=== PATIENT | female | born 1930 | race Caucasian/White ===

== ENCOUNTER 2019-01-28 14:47 | Emergency (ER) | payer MEDICARE, BC ==
[~2019-01-28] VITALS: Ht 172.7 cm; Wt 45.0 kg
[2019-01-28 14:55] VITALS: BP 182/50
[2019-01-28 15:23] LABS: BASOPHILS # (AUTO) 0.1 X10'3 (0-0.2); BASOPHILS % (AUTO) 0.7 % (0-1); PLATELET COUNT 169 X10'3 (140-440)
[2019-01-28 15:25] LABS: EOSINOPHILS # (AUTO) 0.2 X10'3 (0-0.9); EOSINOPHILS % (AUTO) 2.8 % (0-6); HEMATOCRIT 40.1 % (35.0-45.0); HEMOGLOBIN 13.5 g/dl (12.0-16.0); LYMPHOCYTES % (AUTO) 22.7 % (21-51); MEAN CORPUSCULAR HEMOGLOBIN 31.8 PG (27.0-31.0); MEAN CORPUSCULAR HGB CONC 33.6 g/dL (33.0-36.5); MEAN CORPUSCULAR VOLUME 94.6 FL (78-98); MONOCYTES # (AUTO) 0.7 X10'3 (0-0.9); MONOCYTES % (AUTO) 7.4 % (2-12); NEUTROPHILS # (AUTO) 5.8 X10'3 (1.8-7.7); NEUTROPHILS % (AUTO) 66.4 % (42-75); RED BLOOD COUNT 4.24 X10'6 (4.20-5.60); RED CELL DISTRIBUTION WIDTH 13.2 % (11.5-14.5); WHITE BLOOD COUNT 8.8 X10'3 (4.5-11.0)
[2019-01-28 15:32] LABS: ALANINE AMINOTRANSFERASE 45 U/L (12-78); ALBUMIN 3.4 G/DL (3.4-5.0); ALBUMIN/GLOBULIN RATIO 0.9 (1.1-1.5); ALKALINE PHOSPHATASE 92 IU/L (46-116); ANION GAP 3 (8-16); ASPARTATE AMINO TRANSFERASE 25 U/L (10-37); BILIRUBIN,TOTAL 0.7 MG/DL (0.1-1.0); BLOOD UREA NITROGEN 18 MG/DL (7-18); CALCIUM 9.9 MG/DL (8.5-10.1); CHLORIDE 103 MMOL/L (99-107); GLUCOSE 103 MG/DL (70-104); POTASSIUM 3.7 MMOL/L (3.5-5.1); SODIUM 141 MMOL/L (135-145); TOTAL CARBON DIOXIDE 34.8 MMOL/L (24-32); eGFR > 90 ML/MIN
--- NOTE | 2019-01-28 16:00 | NUR ---
relieving RN for break, pt is resting quietly on gurney, GCS 15, resp even and unlabored, talking full sentences, waiting to be evaluated by provider, report to Elpidio CONCEPCION
[2019-01-28 16:33] LABS: LARGE PLATELETS FEW; PLATELET ESTIMATE NORMAL
[2019-01-28] MEDS ORDERED: LEVO500T2 PO (17:20)
[2019-01-28] MEDS ORDERED: levoFLOXACIN 750MG TABLET PO ONE (17:35)
== END 2019-01-28 18:28 | disposition home or self-care (01) ==
LOC: ER 14:47
DX: J22 Unspecified acute lower respiratory infection (principal); R10.84 Generalized abdominal pain; I25.10 Atherosclerotic heart disease of native coronary artery without angina pectoris; I10 Essential (primary) hypertension; K21.9 Gastro-esophageal reflux disease without esophagitis; G89.29 Other chronic pain; Z90.49 Acquired absence of other specified parts of digestive tract; Z88.5 Allergy status to narcotic agent; Z88.8 Allergy status to other drugs, medicaments and biological substances; Z79.899 Other long term (current) drug therapy
CPT/HCPCS: 36415; 71046; 71250; 80053; 83605; 84145; 85025; 87040; 93005; 99284

== ENCOUNTER 2019-06-10 10:34 | Inpatient (IN) | payer MEDICARE, BC ==
[~2019-06-10] VITALS: Ht 154.9 cm; Wt 38.0 kg
[~2019-06-10 10:34] MED LIST: ALBU2.5V10 NEB; ASPI81TA52 PO; ATOR40TA71 PO; CHOL10002 PO; CLOP75TA35 PO; LEVO50TA8 PO; MIRA50TA PO
[2019-06-10 11:36] LABS: BASOPHILS % (AUTO) 0.3 % (0-1); EOSINOPHILS # (AUTO) 0.3 X10'3 (0-0.9); EOSINOPHILS % (AUTO) 1.9 % (0-6); HEMATOCRIT 41.2 % (35.0-45.0); HEMOGLOBIN 13.2 g/dl (12.0-16.0); LYMPHOCYTES % (AUTO) 22.2 % (21-51); MEAN CORPUSCULAR HEMOGLOBIN 30.2 PG (27.0-31.0); MEAN CORPUSCULAR VOLUME 94.4 FL (78-98); MEAN PLATELET VOLUME 10.5 FL (7.4-10.4); MONOCYTES # (AUTO) 0.5 X10'3 (0-0.9); MONOCYTES % (AUTO) 3.9 % (2-12); NEUTROPHILS # (AUTO) 9.7 X10'3 (1.8-7.7); NEUTROPHILS % (AUTO) 71.7 % (42-75); PLATELET COUNT 210 X10'3 (140-440); RED BLOOD COUNT 4.37 X10'6 (4.20-5.60); RED CELL DISTRIBUTION WIDTH 14.2 % (11.5-14.5); WHITE BLOOD COUNT 13.5 X10'3 (4.5-11.0)
[2019-06-10 11:52] LABS: PARTIAL THROMBOPLASTIN TIME 24 SECONDS (22-32)
[2019-06-10 12:00] LABS: ALANINE AMINOTRANSFERASE 51 U/L (12-78); ALBUMIN 3.6 G/DL (3.4-5.0); ALBUMIN/GLOBULIN RATIO 0.9 (1.1-1.5); ALKALINE PHOSPHATASE 81 IU/L (46-116); ANION GAP 7 (8-16); ASPARTATE AMINO TRANSFERASE 47 U/L (10-37); BILIRUBIN,TOTAL 0.7 MG/DL (0.1-1.0); BLOOD UREA NITROGEN 11 MG/DL (7-18); BUN/CREATININE RATIO 19.6 (6.6-38.0); CALCIUM 8.7 MG/DL (8.5-10.1); CHLORIDE 102 MMOL/L (99-107); CREATININE 0.56 MG/DL (0.40-0.90); GLUCOSE 159 MG/DL (70-104); POTASSIUM 3.5 MMOL/L (3.5-5.1); SODIUM 144 MMOL/L (135-145); TOTAL CARBON DIOXIDE 35.1 MMOL/L (24-32); TOTAL PROTEIN 7.4 G/DL (6.4-8.2); eGFR > 90 ML/MIN
[2019-06-10] MEDS ORDERED: hyDRALAzine 10mg tablet PO ONE (12:05)
[2019-06-10] MEDS ORDERED: nitroGLYCERIN 0.4mg SUBLingual tab SL ONE (12:15)
[2019-06-10] MEDS ORDERED: acetaminophen 325mg tablet PO ONE (12:55)
[2019-06-10] MEDS ORDERED: magnesium 2GM in 50ml NS 50 ML IV PRN (14:50)
[2019-06-10] MEDS ORDERED: potassium Cl 20 mEq SR tablet PO PRN (14:50)
[2019-06-10] MEDS ORDERED: acetaminophen 325mg tablet PO PRN (14:50)
[2019-06-10] MEDS ORDERED: magnesium Cl slow-release 64mg tablet PO PRN (14:50)
[2019-06-10] MEDS ORDERED: potassium CL 10mEq/100ml bag 100 ML IV PRN ×2 (14:50)
[2019-06-10] MEDS ORDERED: ondansetron/PF 4mg/2ml inj IV PRN (14:50)
[2019-06-10] MEDS ORDERED: magnesium 4gm in 100ml NS 100 ML IV PRN (14:50)
[2019-06-10] MEDS: albuterol 2.5 MG/3 ML nebule NEB PRN (16:56)
--- NOTE | 2019-06-10 18:31 | NUR ---
Received report from Napoleon CONCEPCION pt is awake on 1.5L in no apparent distress, eating dinner, visitor at bedside.
[2019-06-10 19:00] VITALS: BP 111/51
[2019-06-10] MEDS ORDERED: methylPREDNISolone sod succ 125mg/2ml vial IV ONE (19:10)
[2019-06-10] MEDS: docusate sod 100mg capsule PO SCH (19:29)
[2019-06-10] MEDS: Melatonin 3mg tablet PO PRN (21:36)
[2019-06-10] MEDS: famotidine 20mg tablet PO SCH (21:36)
[2019-06-11 00:02] VITALS: BP 149/69
[2019-06-11 05:52] LABS: BASOPHILS % (AUTO) 0.1 % (0-1); EOSINOPHILS % (AUTO) 0 % (0-6); HEMATOCRIT 38.9 % (35.0-45.0); HEMOGLOBIN 12.8 g/dl (12.0-16.0); LYMPHOCYTES # (AUTO) 1.5 X10'3 (1.1-4.8); LYMPHOCYTES % (AUTO) 21.7 % (21-51); MEAN CORPUSCULAR HEMOGLOBIN 30.8 PG (27.0-31.0); MEAN CORPUSCULAR HGB CONC 32.8 g/dL (33.0-36.5); MEAN CORPUSCULAR VOLUME 93.8 FL (78-98); MEAN PLATELET VOLUME 10.7 FL (7.4-10.4); MONOCYTES # (AUTO) 0.1 X10'3 (0-0.9); MONOCYTES % (AUTO) 1.6 % (2-12); NEUTROPHILS # (AUTO) 5.4 X10'3 (1.8-7.7); NEUTROPHILS % (AUTO) 76.6 % (42-75); PLATELET COUNT 186 X10'3 (140-440); RED BLOOD COUNT 4.15 X10'6 (4.20-5.60); RED CELL DISTRIBUTION WIDTH 14.5 % (11.5-14.5); WHITE BLOOD COUNT 7.1 X10'3 (4.5-11.0)
[2019-06-11 06:01] LABS: ALBUMIN 3.3 G/DL (3.4-5.0); ANION GAP 4 (8-16); BLOOD UREA NITROGEN 11 MG/DL (7-18); BUN/CREATININE RATIO 18.3 (6.6-38.0); CALCIUM 8.8 MG/DL (8.5-10.1); CHLORIDE 100 MMOL/L (99-107); GLUCOSE 114 MG/DL (70-104); MAGNESIUM 1.5 MG/DL (1.5-2.4); POTASSIUM 3.6 MMOL/L (3.5-5.1); SODIUM 140 MMOL/L (135-145); TOTAL CARBON DIOXIDE 36.1 MMOL/L (24-32); eGFR > 90 ML/MIN
--- NOTE | 2019-06-11 06:24 | NUR ---
Gave report to Amy CONCEPCION pt is resting on 2L of O2 via NC in no apparent distress, call light and items of freq use within reach.
[2019-06-11 07:00] VITALS: BP 159/66
[2019-06-11] MEDS: K and/or MAG REPLACEMENT MC SCH (08:00)
[2019-06-11] MEDS: docusate sod 100mg capsule PO SCH ×2 (09:32→21:03)
[2019-06-11] MEDS: enoxaparin 30mg/0.3ml syringe SQ SCH (09:33)
[2019-06-11 11:00] VITALS: BP 114/75
[2019-06-11] MEDS ORDERED: methylPREDNISolone sod succ/PF 40mg inj. IV ONE (14:40)
[2019-06-11] MEDS: clopidogrel 75mg tablet PO SCH (14:51)
--- NOTE | 2019-06-11 15:33 | NUR ---
at 1246 student charted on hourly rounding. charting states butterfly spirometer. she meant flutter valve.
--- NOTE | 2019-06-11 16:22 | NUR ---
Patient is 88 year old female presenting to ED with worsening shortness of breath, had recent treatment for pneumonia. Per MD shortness of breath due to COPD as well. Patient lives at home with her son, history of CAD, HTN, GERD, hypothyroidism. BMI is very low for age, appears to be chronically underweight per weight history. Visited patient at bedside, visibly thin. Patient reports that she has not lost weight recently and simply does not each much at meals. Has a good appetite. She is eating 50-75% of meals. She states that she adds protein powder at home, eats egg noodles, beef, ripe fruit, ensure, cottage cheese. Noted that patient has dentures, she does not want texture change to fruits or vegetables at this time, reports no issue with thin liquids. D/w dietary to send pureed meats, cottage cheese with lunch. Patient would like ensure with meals, recommend Ensure Enlive TID, notified MD of recommendation. Recommend: 1. continue heart healthy diet 2. trial pureed meat 3. send cottage cheese with lunch 3. honor patient's food preferences 4. weight per rx Addendum: 06/11/19 at [address] Amended: Links added.
--- NOTE | 2019-06-11 17:55 | NUR ---
PATIENT REQUESTING BREATHINGT X. PAGED RESP. AT [phone]
--- NOTE | 2019-06-11 17:57 | NUR ---
STUDENT AND NURSE BOTH CHARTED I AND O'S ITS A DUP
[2019-06-11] MEDS: lactose-reduced food (Ensure Enlive) - 237ml bottle PO SCH (18:00)
--- NOTE | 2019-06-11 18:23 | NUR ---
Received report from Amy CONCEPCION pt is receiving her dinner tray requesting a breathing treatment
[2019-06-11] MEDS: albuterol 2.5 MG/3 ML nebule NEB PRN (18:41)
[2019-06-11 19:00] VITALS: BP 157/46
[2019-06-11] MEDS ORDERED: albuterol 2.5 MG/3 ML nebule NEB SCH (20:00)
[2019-06-11] MEDS ORDERED: atorvastatin 20mg tablet PO SCH (21:00)
[2019-06-11] MEDS: Melatonin 3mg tablet PO PRN (21:03)
[2019-06-11] MEDS: famotidine 20mg tablet PO SCH (21:03)
[2019-06-12 00:01] VITALS: BP 151/65
[2019-06-12 06:19] LABS: BASOPHILS % (AUTO) 0.2 % (0-1); EOSINOPHILS % (AUTO) 0.1 % (0-6); HEMATOCRIT 34.8 % (35.0-45.0); HEMOGLOBIN 11.7 g/dl (12.0-16.0); LYMPHOCYTES # (AUTO) 1.8 X10'3 (1.1-4.8); LYMPHOCYTES % (AUTO) 20.4 % (21-51); MEAN CORPUSCULAR HEMOGLOBIN 31.2 PG (27.0-31.0); MEAN CORPUSCULAR HGB CONC 33.5 g/dL (33.0-36.5); MEAN PLATELET VOLUME 11.2 FL (7.4-10.4); MONOCYTES # (AUTO) 0.5 X10'3 (0-0.9); MONOCYTES % (AUTO) 6.3 % (2-12); NEUTROPHILS # (AUTO) 6.3 X10'3 (1.8-7.7); PLATELET COUNT 179 X10'3 (140-440); RED BLOOD COUNT 3.74 X10'6 (4.20-5.60); RED CELL DISTRIBUTION WIDTH 14.5 % (11.5-14.5); WHITE BLOOD COUNT 8.7 X10'3 (4.5-11.0)
--- NOTE | 2019-06-12 06:34 | NUR ---
gave report to Kianna CONCEPCION pt is resting on 2L of O2 via NC, in no apparent distress, bed alarm on, call light and items of freq use within reach.
[2019-06-12 06:36] LABS: ANION GAP 3 (8-16); BLOOD UREA NITROGEN 18 MG/DL (7-18); CALCIUM 8.9 MG/DL (8.5-10.1); CHLORIDE 104 MMOL/L (99-107); CREATININE 0.62 MG/DL (0.40-0.90); GLUCOSE 91 MG/DL (70-104); MAGNESIUM 1.6 MG/DL (1.5-2.4); POTASSIUM 3.3 MMOL/L (3.5-5.1); SODIUM 143 MMOL/L (135-145); TOTAL CARBON DIOXIDE 35.8 MMOL/L (24-32); eGFR > 90 ML/MIN
[2019-06-12 07:00] VITALS: BP 162/77
--- NOTE | 2019-06-12 07:06 | NUR ---
Patient in room KAMALJIT 355. I have received report from Mary Anne CONCEPCION and had the opportunity to ask questions and assume patient care.
[2019-06-12] MEDS: K and/or MAG REPLACEMENT MC SCH (08:00)
[2019-06-12] MEDS ORDERED: levoTHYROXINE 25mcg tablet PO SCH (08:00)
[2019-06-12] MEDS: docusate sod 100mg capsule PO SCH (08:46)
[2019-06-12] MEDS: potassium Cl 20 mEq SR tablet PO PRN ×2 (08:46→13:25)
[2019-06-12] MEDS: clopidogrel 75mg tablet PO SCH (08:46)
[2019-06-12] MEDS: lactose-reduced food (Ensure Enlive) - 237ml bottle PO SCH ×2 (08:47→13:23)
[2019-06-12] MEDS: enoxaparin 30mg/0.3ml syringe SQ SCH (08:47)
[2019-06-12] MEDS: albuterol 2.5 MG/3 ML nebule NEB PRN (11:33)
[2019-06-12 12:00] VITALS: BP 130/58
[2019-06-12] MEDS ORDERED: PRED10TA23 PO (14:12)
[2019-06-12] MEDS ORDERED: FAMO-128 PO (14:13)
[2019-06-12] MEDS ORDERED: LISI-642 PO (14:38)
[2019-06-12] MEDS ORDERED: CARV3.12 PO (14:38)
--- NOTE | 2019-06-12 14:54 | NUR ---
Called in Rx to Juany Pharmacist at [facility]. Coreg and Lisinpril per MD orders Prednisone and Pepcid aready escripted over
[2019-06-13] MEDS ORDERED: AZIT250T83 PO (10:29)
[2019-06-13] MEDS ORDERED: POTA10TA36 PO (10:29)
[2019-06-13] MEDS ORDERED: FURO-150 PO (10:29)
== END 2019-06-12 15:40 | disposition home health service (06) | DRG 191 ==
LOC: ER 10:34 → ED HOLD 14:27 → EDBEDREQ 16:13 → SUR 3N 17:59
PROVIDERS: ADMIT Internal Medicine; ATTEND Internal Medicine
DX: J44.1 Chronic obstructive pulmonary disease with (acute) exacerbation (principal); J96.10 Chronic respiratory failure, unspecified whether with hypoxia or hypercapnia; I25.10 Atherosclerotic heart disease of native coronary artery without angina pectoris; E03.9 Hypothyroidism, unspecified; E78.5 Hyperlipidemia, unspecified; G89.29 Other chronic pain; K21.9 Gastro-esophageal reflux disease without esophagitis; Z66 Do not resuscitate; Z79.02 Long term (current) use of antithrombotics/antiplatelets; Z87.01 Personal history of pneumonia (recurrent); Z95.1 Presence of aortocoronary bypass graft; Z99.81 Dependence on supplemental oxygen; Z88.5 Allergy status to narcotic agent; Z88.8 Allergy status to other drugs, medicaments and biological substances; Z90.49 Acquired absence of other specified parts of digestive tract; I11.0 Hypertensive heart disease with heart failure; I50.9 Heart failure, unspecified
CPT/HCPCS: 36415; 71045; 80048; 80053; 83735; 83880; 85025; 85610; 85730; 87081; 93005; 93306; 94640; 94760; 97112; 97116; 97161; 97530; 99285; G0378; J1650; J2920; J2930

== ENCOUNTER 2019-06-13 08:12 | Emergency (ER) | payer MEDICARE, BC ==
[~2019-06-13] VITALS: Ht 147.3 cm; Wt 34.5 kg
[~2019-06-13 08:12] MED LIST changes: -ASPI81TA52 PO; +CARV3.12 PO; +FAMO-128 PO; +LISI-642 PO; -MIRA50TA PO; +PRED10TA23 PO
[2019-06-13] MEDS ORDERED: nitroGLYCERIN-Tridil 50MG/D5W 250 ML IV ONE ×3 (08:40→09:59)
[2019-06-13] MEDS ORDERED: furosemide 10 MG/1 ML 10ml inj IV ONE (08:40)
[2019-06-13] MEDS ORDERED: furosemide 20 MG/2 ML vial IV ONE (08:50)
[2019-06-13 09:13] LABS: BASOPHILS % (AUTO) 0.4 % (0-1); EOSINOPHILS # (AUTO) 0.3 X10'3 (0-0.9); EOSINOPHILS % (AUTO) 2.4 % (0-6); HEMATOCRIT 43.1 % (35.0-45.0); HEMOGLOBIN 14.1 g/dl (12.0-16.0); LYMPHOCYTES # (AUTO) 2.1 X10'3 (1.1-4.8); LYMPHOCYTES % (AUTO) 19.5 % (21-51); MEAN CORPUSCULAR HGB CONC 32.8 g/dL (33.0-36.5); MEAN CORPUSCULAR VOLUME 94.6 FL (78-98); MEAN PLATELET VOLUME 10.4 FL (7.4-10.4); MONOCYTES # (AUTO) 0.5 X10'3 (0-0.9); MONOCYTES % (AUTO) 4.3 % (2-12); NEUTROPHILS # (AUTO) 8.1 X10'3 (1.8-7.7); NEUTROPHILS % (AUTO) 73.4 % (42-75); PLATELET COUNT 198 X10'3 (140-440); RED BLOOD COUNT 4.55 X10'6 (4.20-5.60); RED CELL DISTRIBUTION WIDTH 14.7 % (11.5-14.5)
[2019-06-13 09:29] LABS: ALANINE AMINOTRANSFERASE 65 U/L (12-78); ALBUMIN 3.9 G/DL (3.4-5.0); ALKALINE PHOSPHATASE 81 IU/L (46-116); ANION GAP 0 (8-16); ASPARTATE AMINO TRANSFERASE 48 U/L (10-37); BILIRUBIN,TOTAL 0.7 MG/DL (0.1-1.0); BLOOD UREA NITROGEN 21 MG/DL (7-18); BUN/CREATININE RATIO 31.3 (6.6-38.0); CHLORIDE 103 MMOL/L (99-107); CREATININE 0.67 MG/DL (0.40-0.90); GLUCOSE 103 MG/DL (70-104); POTASSIUM 4.1 MMOL/L (3.5-5.1); SODIUM 142 MMOL/L (135-145); TOTAL CARBON DIOXIDE 39.4 MMOL/L (24-32); eGFR 83 ML/MIN
[2019-06-13 09:35] LABS: MAGNESIUM 1.6 MG/DL (1.5-2.4)
--- NOTE | 2019-06-13 09:44 | NUR ---
Spoke to BETTINA Watt regarding target BP for pt. SHe states that she is comfortable with the pt's BP at this time, and wants to keep nitroglycerin titration at 20mcg/min if BP maintains.
--- NOTE | 2019-06-13 09:51 | NUR ---
Titrated drip to 10mcg/min per Ansley Watt.
--- NOTE | 2019-06-13 09:59 | NUR ---
Further clarification of order with Ansley Watt. Wants NTG drip to remain at 10mcg/min, and to not titrate. Will call pharmacy to change order to reflect desired order.
[2019-06-13] MEDS ORDERED: FURO-150 PO (10:29)
[2019-06-13] MEDS ORDERED: AZIT250T83 PO (10:29)
[2019-06-13] MEDS ORDERED: POTA10TA36 PO (10:29)
[2019-06-13 10:47] VITALS: BP 137/68
== END 2019-06-13 11:22 | disposition home or self-care (01) ==
LOC: ER 08:13
DX: I11.0 Hypertensive heart disease with heart failure (principal); I50.9 Heart failure, unspecified; J44.9 Chronic obstructive pulmonary disease, unspecified; I25.10 Atherosclerotic heart disease of native coronary artery without angina pectoris; K21.9 Gastro-esophageal reflux disease without esophagitis; G89.29 Other chronic pain; I35.0 Nonrheumatic aortic (valve) stenosis; R91.8 Other nonspecific abnormal finding of lung field; Z90.49 Acquired absence of other specified parts of digestive tract; Z95.1 Presence of aortocoronary bypass graft; Z86.19 Personal history of other infectious and parasitic diseases
CPT/HCPCS: 36415; 71045; 80053; 83735; 83880; 84484; 85025; 93005; 96365; 96366; 96375; 99284; J1940; J3490

== ENCOUNTER 2019-06-20 05:11 | Inpatient (IN) | payer MEDICARE, BC ==
[~2019-06-20] VITALS: Ht 160 cm; Wt 36.5 kg
[~2019-06-20 05:11] MED LIST changes: +FURO-150 PO; +POTA10TA36 PO; -PRED10TA23 PO
[2019-06-20] MEDS ORDERED: nitroGLYCERIN 0.4mg SUBLingual tab SL PRN (05:20)
[2019-06-20] MEDS: nitroGLYCERIN-Tridil 50MG/D5W 250 ML IV PRN ×2 (05:31→05:42)
--- NOTE | 2019-06-20 06:08 | NUR ---
NITRO GTT STARTED AT 10 MCG MIN , STARTING BP 237/105, DR. SHERWOOD VERBAL RECEIVED TO INCREASE TO 20 MCG MIN. BP TRENDING DOWN AND NOW SET AT 10 MCG MIN AND BP 146/57. PT WITH VERY COLD FINGERS AND INTERMITTENTLY GETTING SAT OF 88%, BUT WHEN HAND WARMED AND PROBE MOVED, SATS ARE 94%. FIO2 NOW SET AT 35%.
[2019-06-20 06:25] LABS: BASOPHILS # (AUTO) 0.1 X10'3 (0-0.2); BASOPHILS % (AUTO) 0.3 % (0-1); EOSINOPHILS # (AUTO) 0.3 X10'3 (0-0.9); EOSINOPHILS % (AUTO) 1.7 % (0-6); HEMATOCRIT 39.5 % (35.0-45.0); HEMOGLOBIN 12.6 g/dl (12.0-16.0); LYMPHOCYTES # (AUTO) 5.4 X10'3 (1.1-4.8); LYMPHOCYTES % (AUTO) 27.2 % (21-51); MEAN CORPUSCULAR HEMOGLOBIN 30.5 PG (27.0-31.0); MEAN CORPUSCULAR HGB CONC 31.9 g/dL (33.0-36.5); MEAN CORPUSCULAR VOLUME 95.4 FL (78-98); MEAN PLATELET VOLUME 10.8 FL (7.4-10.4); MONOCYTES # (AUTO) 0.8 X10'3 (0-0.9); MONOCYTES % (AUTO) 4.2 % (2-12); NEUTROPHILS # (AUTO) 13.3 X10'3 (1.8-7.7); NEUTROPHILS % (AUTO) 66.6 % (42-75); PLATELET COUNT 260 X10'3 (140-440); RED BLOOD COUNT 4.14 X10'6 (4.20-5.60); RED CELL DISTRIBUTION WIDTH 14.8 % (11.5-14.5); WHITE BLOOD COUNT 19.9 X10'3 (4.5-11.0)
[2019-06-20 06:32] LABS: PARTIAL THROMBOPLASTIN TIME 22 SECONDS (22-32)
[2019-06-20] MEDS ORDERED: nitroGLYCERIN 0.4mg/hour patch TD ONE (06:40)
[2019-06-20 06:43] LABS: ALANINE AMINOTRANSFERASE 104 U/L (12-78); ALBUMIN 3.3 G/DL (3.4-5.0); ALBUMIN/GLOBULIN RATIO 0.9 (1.1-1.5); ALKALINE PHOSPHATASE 85 IU/L (46-116); ANION GAP 2 (8-16); ASPARTATE AMINO TRANSFERASE 86 U/L (10-37); BILIRUBIN,TOTAL 0.5 MG/DL (0.1-1.0); BLOOD UREA NITROGEN 21 MG/DL (7-18); BUN/CREATININE RATIO 24.7 (6.6-38.0); CALCIUM 9.5 MG/DL (8.5-10.1); CHLORIDE 102 MMOL/L (99-107); CREATININE 0.85 MG/DL (0.40-0.90); GLUCOSE 196 MG/DL (70-104); MAGNESIUM 1.9 MG/DL (1.5-2.4); POTASSIUM 4.5 MMOL/L (3.5-5.1); SODIUM 143 MMOL/L (135-145); TOTAL CARBON DIOXIDE 38.9 MMOL/L (24-32); TOTAL PROTEIN 6.9 G/DL (6.4-8.2); eGFR 63 ML/MIN
--- NOTE | 2019-06-20 06:45 | NUR ---
RASHARD MERLOS STATES TO DISCONTINUE TRIDIL DRIP AND WILL ORDER NITRO PATCH, DISCONTINUED TRIDIL DRIP WILL PLACE PATCH WHEN ORDERED
[2019-06-20 06:56] LABS: ABG BASE EXCESS 3.8 mmol/L (-2.0-3.0); ABG HCO3 31.7 mmol/L (22.0-26.0); ABG OXYGEN SATURATION 88.5 % (95-98); ABG PCO2 (T) 64.9 mmHg (35.0-45.0); ABG PH (T) 7.307 (7.350-7.450); ABG PO2 (T) 60.9 mmHg (83-108); ALLEN'S TEST Positive; FCOHb 0.4 % (0.5-1.5); FMetHb 0.1 % (0.3-1.12); FO2Hb 88.1 % (94-100); MINUTE VOLUME 12 L/min; RESPIRATORY RATE 14 b/min; RESPIRATORY RATE (OBSERVED) 22 b/min; TIDAL VOLUME 607 mL; TOTAL HEMOGLOBIN 12.2 G/dl (12.0-16.0)
[2019-06-20] MEDS ORDERED: azithromycin/NS 500mg/250ml 250 ML IV ONE (07:10)
[2019-06-20 07:35] LABS: LARGE PLATELETS FEW; PLATELET ESTIMATE NORMAL
--- NOTE | 2019-06-20 08:02 | NUR ---
DR PAULSON AT BEDSIDE FOR EVALUATION, WILL RETURN TO COMPLETE EVALUATION AFTER STRAIGHT CATH PROCEDURE COMPLETED
[2019-06-20] MEDS ORDERED: magnesium 4gm in 100ml NS 100 ML IV PRN (08:10)
[2019-06-20] MEDS ORDERED: magnesium Cl slow-release 64mg tablet PO PRN (08:10)
[2019-06-20] MEDS ORDERED: ondansetron/PF 4mg/2ml inj IV PRN (08:10)
[2019-06-20] MEDS ORDERED: acetaminophen 325mg tablet PO PRN (08:10)
[2019-06-20] MEDS ORDERED: magnesium 2GM in 50ml NS 50 ML IV PRN (08:10)
[2019-06-20] MEDS ORDERED: potassium Cl 20 mEq SR tablet PO PRN (08:10)
[2019-06-20] MEDS ORDERED: potassium CL 10mEq/100ml bag 100 ML IV PRN ×2 (08:10)
[2019-06-20] MEDS ORDERED: FURO40TA4 PO (08:20)
[2019-06-20] MEDS ORDERED: POTA10TA19 PO (08:23)
[2019-06-20] MEDS ORDERED: CARV3.122 PO (08:23)
[2019-06-20] MEDS ORDERED: LISI-604 PO (08:23)
[2019-06-20] MEDS ORDERED: FAMO20TA8 PO (08:24)
[2019-06-20] MEDS ORDERED: MIRA25TA PO (08:25)
[2019-06-20 08:26] LABS: CLARITY,URINE CLEAR (Clear); COLOR,URINE YELLOW (Yellow); GLUCOSE, URINE NEGATIVE (Neg); KETONES,URINE NEGATIVE (Neg); LEUKOCYTE ESTERASE ,URINE NEGATIVE (Neg); NITRITES, URINE NEGATIVE (Neg); OCCULT BLOOD,URINE NEGATIVE (Neg); PROTEIN,URINE NEGATIVE (Neg); UROBILINOGEN,URINE 0.2 E.U/dL (0.2-1.0)
[2019-06-20 08:29] LABS: UA COLLECTION TYPE STRAIGHT CATH
--- NOTE | 2019-06-20 10:44 | NUR ---
PAGER ID: [phone] MESSAGE: Ronald Berrios. Patient BP is 199/71. HR in the 80s SR. Please advise. Magalys [phone] Paged regarding High BP
[2019-06-20] MEDS ORDERED: metoprolol tartrate 12.5mg (1/2 tablet) PO ONE (10:50)
[2019-06-20 11:00] VITALS: BP 195/72
[2019-06-20] MEDS: albuterol 2.5 MG/3 ML nebule NEB SCH ×4 (12:18→23:32)
[2019-06-20 12:53] VITALS: BP 167/80
--- NOTE | 2019-06-20 13:10 | NUR ---
Rm [id number]. Patient cannot tolerate the bipap mask. Can we get a different type of mask please. Thank you.
--- NOTE | 2019-06-20 13:30 | NUR ---
PAGER ID: [phone] MESSAGE: Juaquin 7552HRonald. Patient having difficult time with bipap mask, RT was up to evaluate and has her on 3L NC at this time. Can we change the bipap order to PRN?? Thank you, Magalys [phone]
[2019-06-20 15:00] VITALS: BP 128/55
--- NOTE | 2019-06-20 15:18 | NUR ---
Rm [id number]. Ronald. Could you please bring up the facemask for bipap, patient is feeling like she wants to go on bipap. Thank you.
[2019-06-20 18:00] VITALS: BP 187/84
--- NOTE | 2019-06-20 18:36 | NUR ---
Orientee documentation: I have reviewed and agree with interventions, assessments performed and documented by Suzi. Orientchrissie Medication Administration: For this medication-pass time frame, medication were reviewed, dispensed, administered and documented per hospital policy by Suzi Murillo.
--- NOTE | 2019-06-20 18:36 | NUR ---
Problems reprioritized. Patient report given, questions answered & plan of care reviewed with Jihan CONCEPCION. Patient stable at transfer of care.
--- NOTE | 2019-06-20 18:50 | NUR ---
Patient in room PCU 3025. I have received report from Magalys CONCEPCION and had the opportunity to ask questions and assume patient care.
--- NOTE | 2019-06-20 18:59 | NUR ---
PAGER ID: [phone] MESSAGE: Maryjo Cardenas [id number]: Pt was admitted with CHF exacerbation.Pt had a BP of 206/91.Retake was 211/84.BP was 195/73 at 1103 this morning and was given a one time dose of Lopressor 12.5mg.Pt currently has a nitro patch in place. Uzma CONCEPCION [phone]
[2019-06-20] MEDS: famotidine 20mg tablet PO SCH (19:37)
[2019-06-20] MEDS: carVEDilol 3.125mg tablet PO SCH (19:38)
[2019-06-20] MEDS: docusate sod 100mg capsule PO SCH (19:38)
[2019-06-20] MEDS: furosemide 40mg/4ml inj IV SCH (19:40)
--- NOTE | 2019-06-20 19:43 | NUR ---
Patient's blood pressure down to 190/[address] Bar ordered PRN Hydralazine 10mg Q6H PRN for SBP >180. Patient has scheduled Coreg and IVP Lasix due right now so will give these and then reassess if BP is still elevated and needs Hydralazine also.
[2019-06-20] MEDS ORDERED: hydrALAZINE 20mg/ml inj. IV PRN (19:45)
[2019-06-20] MEDS: heparin, porcine 5000 units/ml vial SQ SCH (20:00)
[2019-06-20] MEDS: atorvastatin 20mg tablet PO SCH (20:08)
[2019-06-20] MEDS: acetaminophen 325mg tablet PO PRN (20:09)
--- NOTE | 2019-06-20 20:43 | NUR ---
Blood pressure has gone down to 154/84 after her scheduled Lasix and Coreg. Will continue to monitor.
[2019-06-20 22:00] VITALS: BP 152/87
[2019-06-21 02:00] VITALS: BP 138/52
[2019-06-21] MEDS: albuterol 2.5 MG/3 ML nebule NEB SCH ×6 (03:23→23:49)
--- NOTE | 2019-06-21 05:55 | NUR ---
Orientee documentation: I have reviewed and agree with all interventions, assessments performed and documented by Uzma CONCEPCION. Orientee Medication Administration: For this medication-pass time frame, all medication were reviewed, dispensed, administered and documented per hospital policy by Uzma CONCEPCION.
[2019-06-21 06:00] VITALS: BP 140/57
[2019-06-21 06:20] LABS: ALBUMIN 2.9 G/DL (3.4-5.0); ANION GAP 4 (8-16); BLOOD UREA NITROGEN 15 MG/DL (7-18); BUN/CREATININE RATIO 22.7 (6.6-38.0); CALCIUM 9.5 MG/DL (8.5-10.1); CHLORIDE 100 MMOL/L (99-107); CREATININE 0.66 MG/DL (0.40-0.90); GLUCOSE 94 MG/DL (70-104); MAGNESIUM 1.6 MG/DL (1.5-2.4); POTASSIUM 3.5 MMOL/L (3.5-5.1); SODIUM 143 MMOL/L (135-145); TOTAL CARBON DIOXIDE 39.3 MMOL/L (24-32); eGFR 85 ML/MIN
--- NOTE | 2019-06-21 06:20 | NUR ---
Patient in room PCU 3025. I have received report from Jihan and Uzma RN's and had the opportunity to ask questions and assume patient care. Patient has been placed on bed bolaños and Uzma RN has removed the patients field start PIV successfully.
--- NOTE | 2019-06-21 06:20 | NUR ---
Problems reprioritized. Patient report given, questions answered & plan of care reviewed with Magalys CONCEPCION.
[2019-06-21 06:26] LABS: BASOPHILS # (AUTO) 0.1 X10'3 (0-0.2); BASOPHILS % (AUTO) 0.5 % (0-1); EOSINOPHILS # (AUTO) 0.2 X10'3 (0-0.9); EOSINOPHILS % (AUTO) 1.3 % (0-6); HEMATOCRIT 36.8 % (35.0-45.0); HEMOGLOBIN 12.1 g/dl (12.0-16.0); LYMPHOCYTES # (AUTO) 3.2 X10'3 (1.1-4.8); LYMPHOCYTES % (AUTO) 27.8 % (21-51); MEAN CORPUSCULAR HEMOGLOBIN 30.8 PG (27.0-31.0); MEAN CORPUSCULAR HGB CONC 32.8 g/dL (33.0-36.5); MEAN CORPUSCULAR VOLUME 93.8 FL (78-98); MEAN PLATELET VOLUME 11.4 FL (7.4-10.4); MONOCYTES # (AUTO) 0.8 X10'3 (0-0.9); MONOCYTES % (AUTO) 6.7 % (2-12); NEUTROPHILS # (AUTO) 7.4 X10'3 (1.8-7.7); NEUTROPHILS % (AUTO) 63.7 % (42-75); PLATELET COUNT 196 X10'3 (140-440); RED BLOOD COUNT 3.92 X10'6 (4.20-5.60); RED CELL DISTRIBUTION WIDTH 14.8 % (11.5-14.5); WHITE BLOOD COUNT 11.6 X10'3 (4.5-11.0)
[2019-06-21] MEDS: famotidine 20mg tablet PO SCH ×2 (07:44→20:52)
[2019-06-21] MEDS: carVEDilol 3.125mg tablet PO SCH ×2 (07:45→20:52)
[2019-06-21] MEDS: docusate sod 100mg capsule PO SCH ×2 (07:45→19:23)
[2019-06-21] MEDS: furosemide 40mg/4ml inj IV SCH ×2 (07:48→20:52)
[2019-06-21] MEDS: heparin, porcine 5000 units/ml vial SQ SCH ×2 (07:48→20:53)
[2019-06-21] MEDS ORDERED: mirabegron 25mg ER tablet PO SCH (08:00)
[2019-06-21] MEDS: levoTHYROXINE 25mcg tablet PO SCH (08:00)
[2019-06-21] MEDS: mirabegron 25mg ER tablet PO SCH (08:00)
[2019-06-21] MEDS: K and/or MAG REPLACEMENT MC SCH (08:00)
[2019-06-21] MEDS: CefTRIAXone 2gm/D5W 50ml 50 ML IV SCH (08:00)
[2019-06-21] MEDS: lisinopril 5mg tablet PO SCH (08:00)
[2019-06-21] MEDS: clopidogrel 75mg tablet PO SCH (08:00)
--- NOTE | 2019-06-21 08:00 | NUR ---
The following medications were given to the patient by CARLENE Farrell but did not save: Plavix, Synthroid, Rocephin, and Lisinopril The administration was witnessed by Magalys CONCEPCION.
[2019-06-21 11:00] VITALS: BP 143/76
[2019-06-21 15:30] VITALS: BP 177/65
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
--- NOTE | 2019-06-21 18:08 | NUR ---
Problems prioritized, report given and plan of care reviewed with Jihan CONCEPCION. Pts SBP is 128 after PRN hydralazine, resting comfortably.
--- NOTE | 2019-06-21 18:13 | NUR ---
Orientee documentation: I have reviewed and agree with all interventions, assessments performed and documented by CARLENE Farrell. Orientee Medication Administration: For this medication-pass time frame, all medication were reviewed, dispensed, administered and documented per hospital policy by CARLENE Farrell.
--- NOTE | 2019-06-21 18:34 | NUR ---
Patient in room PCU 3025. I have received report from Magalys CONCEPCION and Jami CONCEPCION and had the opportunity to ask questions and assume patient care.
[2019-06-21 19:00] VITALS: BP 144/64
[2019-06-21] MEDS: lactobacillus rhamnosus 10,000 MMU CELLS/CAPSULE PO SCH (20:52)
[2019-06-21] MEDS: atorvastatin 20mg tablet PO SCH (20:52)
[2019-06-21] MEDS: acetaminophen 325mg tablet PO PRN (21:30)
[2019-06-21 22:00] VITALS: BP 144/109
[2019-06-22 02:00] VITALS: BP 116/59
[2019-06-22] MEDS: albuterol 2.5 MG/3 ML nebule NEB SCH ×6 (03:29→23:08)
[2019-06-22 04:59] LABS: BASOPHILS # (AUTO) 0.1 X10'3 (0-0.2); BASOPHILS % (AUTO) 0.5 % (0-1); EOSINOPHILS # (AUTO) 0.2 X10'3 (0-0.9); EOSINOPHILS % (AUTO) 1.7 % (0-6); HEMATOCRIT 40.3 % (35.0-45.0); HEMOGLOBIN 13.3 g/dl (12.0-16.0); LYMPHOCYTES % (AUTO) 28.1 % (21-51); MEAN CORPUSCULAR HEMOGLOBIN 30.7 PG (27.0-31.0); MEAN CORPUSCULAR HGB CONC 32.9 g/dL (33.0-36.5); MEAN CORPUSCULAR VOLUME 93.3 FL (78-98); MONOCYTES # (AUTO) 0.9 X10'3 (0-0.9); MONOCYTES % (AUTO) 8.6 % (2-12); NEUTROPHILS # (AUTO) 6.6 X10'3 (1.8-7.7); NEUTROPHILS % (AUTO) 61.1 % (42-75); PLATELET COUNT 214 X10'3 (140-440); RED BLOOD COUNT 4.32 X10'6 (4.20-5.60); RED CELL DISTRIBUTION WIDTH 14.7 % (11.5-14.5); WHITE BLOOD COUNT 10.8 X10'3 (4.5-11.0)
[2019-06-22 05:05] LABS: ALBUMIN 3.2 G/DL (3.4-5.0); ANION GAP 6 (8-16); BLOOD UREA NITROGEN 16 MG/DL (7-18); BUN/CREATININE RATIO 20.8 (6.6-38.0); CHLORIDE 99 MMOL/L (99-107); CREATININE 0.77 MG/DL (0.40-0.90); GLUCOSE 99 MG/DL (70-104); MAGNESIUM 1.7 MG/DL (1.5-2.4); SODIUM 143 MMOL/L (135-145); TOTAL CARBON DIOXIDE 38.3 MMOL/L (24-32); eGFR 71 ML/MIN
[2019-06-22 05:11] LABS: POTASSIUM 2.7 MMOL/L (3.5-5.1)
[2019-06-22] MEDS: potassium Cl 20 mEq SR tablet PO PRN ×3 (05:32→15:02)
[2019-06-22 06:00] VITALS: BP 143/55
--- NOTE | 2019-06-22 06:31 | NUR ---
Problems reprioritized. Patient report given, questions answered & plan of care reviewed with Magalys CONCEPCION and Jami CONCEPCION.
--- NOTE | 2019-06-22 06:40 | NUR ---
Patient in room PCU 3025. I have received report from Jihan CONCEPCION, and had the opportunity to ask questions and assume patient care. Patient is sleeping comfortably with a present chest rise/fall. Will continue to monitor patient.
[2019-06-22 06:58] LABS: LARGE PLATELETS FEW; PLATELET ESTIMATE NORMAL
[2019-06-22] MEDS: CefTRIAXone 2gm/D5W 50ml 50 ML IV SCH (07:15)
[2019-06-22] MEDS: heparin, porcine 5000 units/ml vial SQ SCH ×2 (07:17→20:22)
[2019-06-22] MEDS: furosemide 40mg/4ml inj IV SCH ×2 (07:17→20:21)
[2019-06-22] MEDS: lactobacillus rhamnosus 10,000 MMU CELLS/CAPSULE PO SCH ×2 (07:17→20:22)
[2019-06-22] MEDS: clopidogrel 75mg tablet PO SCH (07:17)
[2019-06-22] MEDS: levoTHYROXINE 25mcg tablet PO SCH (07:17)
[2019-06-22] MEDS: carVEDilol 3.125mg tablet PO SCH ×2 (07:18→20:22)
[2019-06-22] MEDS: famotidine 20mg tablet PO SCH ×2 (07:18→20:22)
[2019-06-22] MEDS: docusate sod 100mg capsule PO SCH ×2 (07:18→20:00)
[2019-06-22] MEDS: lisinopril 5mg tablet PO SCH (07:18)
[2019-06-22] MEDS: lactose-reduced food (Ensure Enlive) - 237ml bottle PO SCH ×2 (08:00→18:00)
[2019-06-22] MEDS: mirabegron 25mg ER tablet PO SCH (08:00)
[2019-06-22] MEDS: K and/or MAG REPLACEMENT MC SCH (08:00)
[2019-06-22 15:00] VITALS: BP 120/54
[2019-06-22 18:00] VITALS: BP 114/75
--- NOTE | 2019-06-22 18:21 | NUR ---
Problems reprioritized. Patient report given, questions answered & plan of care reviewed with Jihan CONCEPCION and Cherry CONCEPCION. Pt sitting in bed eating dinner.
--- NOTE | 2019-06-22 19:02 | NUR ---
Patient in room PCU 3025. I have received report from Magalys CONCEPCION and had the opportunity to ask questions and assume patient care.
[2019-06-22] MEDS: atorvastatin 20mg tablet PO SCH (20:22)
[2019-06-22 22:00] VITALS: BP 135/108
[2019-06-23 02:00] VITALS: BP 110/53
[2019-06-23] MEDS: albuterol 2.5 MG/3 ML nebule NEB SCH ×5 (03:02→23:56)
[2019-06-23 04:12] LABS: BASOPHILS % (AUTO) 0.3 % (0-1); EOSINOPHILS # (AUTO) 0.2 X10'3 (0-0.9); EOSINOPHILS % (AUTO) 1.8 % (0-6); HEMATOCRIT 38.9 % (35.0-45.0); HEMOGLOBIN 12.7 g/dl (12.0-16.0); LYMPHOCYTES # (AUTO) 2.9 X10'3 (1.1-4.8); LYMPHOCYTES % (AUTO) 22.6 % (21-51); MEAN CORPUSCULAR HEMOGLOBIN 30.6 PG (27.0-31.0); MEAN CORPUSCULAR HGB CONC 32.6 g/dL (33.0-36.5); MEAN CORPUSCULAR VOLUME 93.9 FL (78-98); MEAN PLATELET VOLUME 11.2 FL (7.4-10.4); MONOCYTES % (AUTO) 8.1 % (2-12); NEUTROPHILS # (AUTO) 8.5 X10'3 (1.8-7.7); NEUTROPHILS % (AUTO) 67.2 % (42-75); PLATELET COUNT 188 X10'3 (140-440); RED BLOOD COUNT 4.15 X10'6 (4.20-5.60); RED CELL DISTRIBUTION WIDTH 14.9 % (11.5-14.5); WHITE BLOOD COUNT 12.6 X10'3 (4.5-11.0)
[2019-06-23 04:19] LABS: ALBUMIN 3.1 G/DL (3.4-5.0); ANION GAP 6 (8-16); BLOOD UREA NITROGEN 29 MG/DL (7-18); BUN/CREATININE RATIO 39.7 (6.6-38.0); CALCIUM 10.3 MG/DL (8.5-10.1); CHLORIDE 103 MMOL/L (99-107); CREATININE 0.73 MG/DL (0.40-0.90); GLUCOSE 113 MG/DL (70-104); MAGNESIUM 1.6 MG/DL (1.5-2.4); POTASSIUM 4.7 MMOL/L (3.5-5.1); SODIUM 146 MMOL/L (135-145); TOTAL CARBON DIOXIDE 36.7 MMOL/L (24-32); eGFR 75 ML/MIN
[2019-06-23 06:00] VITALS: BP 104/57
[2019-06-23] MEDS: levoTHYROXINE 25mcg tablet PO SCH (07:00)
[2019-06-23 07:24] LABS: LARGE PLATELETS FEW; PLATELET ESTIMATE NORMAL
[2019-06-23] MEDS: lactose-reduced food (Ensure Enlive) - 237ml bottle PO SCH ×3 (08:00→18:00)
[2019-06-23] MEDS: K and/or MAG REPLACEMENT MC SCH (08:00)
[2019-06-23] MEDS: furosemide 40mg/4ml inj IV SCH (08:52)
[2019-06-23] MEDS: lactobacillus rhamnosus 10,000 MMU CELLS/CAPSULE PO SCH ×2 (08:53→21:16)
[2019-06-23] MEDS: clopidogrel 75mg tablet PO SCH (08:53)
[2019-06-23] MEDS: docusate sod 100mg capsule PO SCH ×2 (08:53→21:17)
[2019-06-23] MEDS: famotidine 20mg tablet PO SCH ×2 (08:54→21:16)
[2019-06-23] MEDS: lisinopril 5mg tablet PO SCH (08:55)
[2019-06-23] MEDS: carVEDilol 3.125mg tablet PO SCH ×2 (08:55→21:17)
[2019-06-23] MEDS ORDERED: CEFD300C3 PO (09:19)
[2019-06-23] MEDS ORDERED: LACT1CAP26 PO (09:19)
[2019-06-23 11:00] VITALS: BP 108/51
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
[2019-06-23 15:00] VITALS: BP 111/88
[2019-06-23] MEDS: azithromycin 250mg tablet PO SCH (18:19)
[2019-06-23 18:30] VITALS: BP 108/47
--- NOTE | 2019-06-23 18:43 | NUR ---
Problems reprioritized. Patient report given, questions answered & plan of care reviewed with Calderon CONCEPCION.
--- NOTE | 2019-06-23 18:49 | NUR ---
Patient in room PCU 3025. I have received report from carlos CONCEPCION and had the opportunity to ask questions and assume patient care.
[2019-06-23] MEDS: acetaminophen 325mg tablet PO PRN (21:17)
[2019-06-23] MEDS: heparin, porcine 5000 units/ml vial SQ SCH ×2 (21:18→21:27)
[2019-06-23] MEDS: atorvastatin 20mg tablet PO SCH (21:18)
[2019-06-23 22:30] VITALS: BP 118/49
[2019-06-24 02:30] VITALS: BP 115/50
[2019-06-24] MEDS: albuterol 2.5 MG/3 ML nebule NEB SCH ×2 (03:10→07:40)
[2019-06-24 04:58] LABS: BASOPHILS # (AUTO) 0.1 X10'3 (0-0.2); BASOPHILS % (AUTO) 0.7 % (0-1); EOSINOPHILS # (AUTO) 0.3 X10'3 (0-0.9); EOSINOPHILS % (AUTO) 2.4 % (0-6); HEMOGLOBIN 11.9 g/dl (12.0-16.0); LYMPHOCYTES # (AUTO) 3.3 X10'3 (1.1-4.8); LYMPHOCYTES % (AUTO) 26.5 % (21-51); MEAN CORPUSCULAR HEMOGLOBIN 30.8 PG (27.0-31.0); MEAN CORPUSCULAR HGB CONC 33.1 g/dL (33.0-36.5); MEAN CORPUSCULAR VOLUME 93.3 FL (78-98); MEAN PLATELET VOLUME 11.1 FL (7.4-10.4); MONOCYTES % (AUTO) 8.2 % (2-12); NEUTROPHILS # (AUTO) 7.9 X10'3 (1.8-7.7); NEUTROPHILS % (AUTO) 62.2 % (42-75); PLATELET COUNT 167 X10'3 (140-440); RED BLOOD COUNT 3.86 X10'6 (4.20-5.60); RED CELL DISTRIBUTION WIDTH 14.9 % (11.5-14.5); WHITE BLOOD COUNT 12.6 X10'3 (4.5-11.0)
[2019-06-24 05:10] LABS: ALBUMIN 2.9 G/DL (3.4-5.0); ANION GAP 3 (8-16); BLOOD UREA NITROGEN 39 MG/DL (7-18); BUN/CREATININE RATIO 48.1 (6.6-38.0); CALCIUM 10.9 MG/DL (8.5-10.1); CHLORIDE 99 MMOL/L (99-107); CREATININE 0.81 MG/DL (0.40-0.90); GLUCOSE 94 MG/DL (70-104); MAGNESIUM 1.7 MG/DL (1.5-2.4); POTASSIUM 4.3 MMOL/L (3.5-5.1); SODIUM 138 MMOL/L (135-145); TOTAL CARBON DIOXIDE 36.4 MMOL/L (24-32); eGFR 67 ML/MIN
[2019-06-24 06:00] VITALS: BP 122/46
--- NOTE | 2019-06-24 06:10 | NUR ---
Problems reprioritized. Patient report given, questions answered & plan of care reviewed with Marsha CONCEPCION.
[2019-06-24 06:12] LABS: GIANT PLATELET FEW; LARGE PLATELETS FEW; PLATELET ESTIMATE NORMAL
--- NOTE | 2019-06-24 06:56 | NUR ---
Patient in room PCU 3025. I have received report from Calderon CONCEPCION and had the opportunity to ask questions and assume patient care.
[2019-06-24] MEDS: levoTHYROXINE 25mcg tablet PO SCH (07:00)
[2019-06-24] MEDS ORDERED: furosemide 40mg tablet PO SCH (08:00)
[2019-06-24] MEDS: K and/or MAG REPLACEMENT MC SCH (08:00)
[2019-06-24] MEDS: lactose-reduced food (Ensure Enlive) - 237ml bottle PO SCH ×2 (08:00→09:18)
[2019-06-24] MEDS: heparin, porcine 5000 units/ml vial SQ SCH ×2 (08:59→09:16)
[2019-06-24] MEDS: lactobacillus rhamnosus 10,000 MMU CELLS/CAPSULE PO SCH (09:00)
[2019-06-24] MEDS: CefTRIAXone 2gm/D5W 50ml 50 ML IV SCH ×2 (09:03→09:15)
[2019-06-24] MEDS: famotidine 20mg tablet PO SCH (09:07)
[2019-06-24] MEDS: azithromycin 250mg tablet PO SCH (09:07)
[2019-06-24] MEDS: clopidogrel 75mg tablet PO SCH (09:07)
[2019-06-24] MEDS: carVEDilol 3.125mg tablet PO SCH (09:07)
[2019-06-24] MEDS: docusate sod 100mg capsule PO SCH (09:07)
[2019-06-24] MEDS: lisinopril 5mg tablet PO SCH (09:08)
[2019-06-24] MEDS: mirabegron 25mg ER tablet PO SCH ×2 (09:08→09:15)
[2019-06-24] MEDS ORDERED: AZI25OT PO (10:44)
--- NOTE | 2019-06-24 11:31 | NUR ---
Student Medication Administration: For this medication-pass time frame, all medication were reviewed, dispensed, administered and documented per hospital policy by Gisele Colmenares, [facility] .
--- NOTE | 2019-06-24 11:32 | NUR ---
Student documentation: I have reviewed interventions, assessments performed and documented by MISHA Hernandez [facility].
--- NOTE | 2019-06-24 11:43 | NUR ---
pt stable for discharge per md orders, discharge instructions reviewed w/ pt and all questions answered, new medication prescription called in to [facility] per pt preference, mobile 65 removed and returned, PIV dc'ed and clean dry dressing in place, pt wheeled down to [facility] w/ hospital staff, pt discharges at 1115 in private vehicle w/ son, all belongings w/ pt at time of discharge
--- NOTE | 2019-06-24 16:51 | NUR ---
Pt d/c prior to RD visit. Written malnutrition ed w/ ONS coupons and RD contact information mailed to pt home address. Addendum: 06/24/19 at [address] Amended: Links added.
== END 2019-06-24 11:21 | disposition home health service (06) | DRG 189 ==
LOC: ER 05:13 → ED HOLD 07:16 → PCU 3S 10:01
PROVIDERS: ADMIT Internal Medicine; ATTEND Family Medicine
PROC: 5A09357 Assistance with Respiratory Ventilation, Less than 24 Consecutive Hours, Continuous Positive Airway Pressure (ICD-10-PCS; principal; 2019-06-20)
DX: J96.01 Acute respiratory failure with hypoxia (principal); I50.43 Acute on chronic combined systolic (congestive) and diastolic (congestive) heart failure; J44.1 Chronic obstructive pulmonary disease with (acute) exacerbation; I16.1 Hypertensive emergency; I11.0 Hypertensive heart disease with heart failure; J96.02 Acute respiratory failure with hypercapnia; E03.9 Hypothyroidism, unspecified; E78.5 Hyperlipidemia, unspecified; E87.6 Hypokalemia; G89.4 Chronic pain syndrome; I25.10 Atherosclerotic heart disease of native coronary artery without angina pectoris; K21.9 Gastro-esophageal reflux disease without esophagitis; Z66 Do not resuscitate; Z79.02 Long term (current) use of antithrombotics/antiplatelets; Z79.890 Hormone replacement therapy; Z79.899 Other long term (current) drug therapy; Z99.81 Dependence on supplemental oxygen; Z88.5 Allergy status to narcotic agent; Z88.8 Allergy status to other drugs, medicaments and biological substances; Z90.49 Acquired absence of other specified parts of digestive tract; Z95.1 Presence of aortocoronary bypass graft
CPT/HCPCS: 36415; 36600; 71045; 80048; 80053; 81003; 82803; 83605; 83735; 83880; 84484; 85018; 85025; 85610; 85730; 87040; 87081; 93005; 93306; 94640; 94660; 94760; 96365; 97110; 97112; 97116; 97161; 97530; 99291; G0378; J0360; J0456; J0696; J1644; J1940; J3490

== ENCOUNTER 2019-07-15 13:22 | Inpatient (IN) | payer MEDICARE, BC ==
[~2019-07-15] VITALS: Ht 139.7 cm; Wt 37.1 kg
[~2019-07-15 13:22] MED LIST changes: +AZI25OT PO; -CARV3.12 PO; +CARV3.122 PO; +CEFD300C3 PO; -CHOL10002 PO; -FAMO-128 PO; +FAMO20TA8 PO; -FURO-150 PO; +FURO40TA4 PO; +LACT1CAP26 PO; +LISI-604 PO; -LISI-642 PO; +MIRA25TA PO; +POTA10TA19 PO; -POTA10TA36 PO
--- NOTE | 2019-07-15 14:11 | NUR ---
SON RONY WATKINS CALLED, WANTS TO BE CONTACTED IF PT IS ADMITTED
[2019-07-15 15:14] LABS: BASOPHILS % (AUTO) 0.4 % (0-1); EOSINOPHILS % (AUTO) 0.2 % (0-6); HEMATOCRIT 39.1 % (35.0-45.0); HEMOGLOBIN 12.6 g/dl (12.0-16.0); LYMPHOCYTES # (AUTO) 1.3 X10'3 (1.1-4.8); LYMPHOCYTES % (AUTO) 11.2 % (21-51); MEAN CORPUSCULAR HEMOGLOBIN 30.6 PG (27.0-31.0); MEAN CORPUSCULAR HGB CONC 32.2 g/dL (33.0-36.5); MEAN CORPUSCULAR VOLUME 95.3 FL (78-98); MEAN PLATELET VOLUME 10.3 FL (7.4-10.4); MONOCYTES # (AUTO) 0.7 X10'3 (0-0.9); MONOCYTES % (AUTO) 5.5 % (2-12); NEUTROPHILS % (AUTO) 82.7 % (42-75); PLATELET COUNT 162 X10'3 (140-440)
[2019-07-15 15:30] LABS: ALANINE AMINOTRANSFERASE 66 U/L (12-78); ALBUMIN 3.6 G/DL (3.4-5.0); ALKALINE PHOSPHATASE 76 IU/L (46-116); ANION GAP 5 (8-16); ASPARTATE AMINO TRANSFERASE 58 U/L (10-37); BILIRUBIN,TOTAL 0.5 MG/DL (0.1-1.0); BLOOD UREA NITROGEN 13 MG/DL (7-18); BUN/CREATININE RATIO 22.8 (6.6-38.0); CALCIUM 9.3 MG/DL (8.5-10.1); CHLORIDE 100 MMOL/L (99-107); CREATININE 0.57 MG/DL (0.40-0.90); GLUCOSE 96 MG/DL (70-104); POTASSIUM 4.3 MMOL/L (3.5-5.1); SODIUM 144 MMOL/L (135-145); TOTAL CARBON DIOXIDE 38.7 MMOL/L (24-32); TOTAL PROTEIN 7.2 G/DL (6.4-8.2); eGFR > 90 ML/MIN
[2019-07-15] MEDS ORDERED: albuterol 2.5 MG/3 ML nebule NEB ONE (15:35)
[2019-07-15] MEDS ORDERED: aspirin 81mg tab.chew PO ONE (15:55)
[2019-07-15] MEDS ORDERED: nitroGLYCERIN 1gm ointment UD TP ONE (15:55)
[2019-07-15] MEDS ORDERED: furosemide 10 MG/1 ML 10ml inj IV ONE (16:05)
[2019-07-15] MEDS ORDERED: potassium Cl 20 mEq SR tablet PO PRN (16:40)
[2019-07-15] MEDS ORDERED: magnesium 4gm in 100ml NS 100 ML IV PRN (16:40)
[2019-07-15] MEDS ORDERED: mag hydrox/Alum hydrox/simeth 30ml oral suspension PO PRN (16:40)
[2019-07-15] MEDS ORDERED: magnesium Cl slow-release 64mg tablet PO PRN (16:40)
[2019-07-15] MEDS ORDERED: acetaminophen 325mg tablet PO PRN ×2 (16:40)
[2019-07-15] MEDS ORDERED: enoxaparin 30mg/0.3ml syringe SUBCUT ONE (16:40)
[2019-07-15] MEDS ORDERED: potassium CL 10mEq/100ml bag 100 ML IV PRN ×2 (16:40)
[2019-07-15] MEDS ORDERED: magnesium hydroxide 30ml (MOM) UD suspension PO PRN (16:40)
[2019-07-15] MEDS ORDERED: magnesium 2GM in 50ml NS 50 ML IV PRN (16:40)
[2019-07-15] MEDS ORDERED: ondansetron/PF 4mg/2ml inj IV PRN (16:40)
[2019-07-15] MEDS ORDERED: nitroGLYCERIN 0.4mg SUBLingual tab SL PRN ×2 (16:45→23:40)
[2019-07-15] MEDS ORDERED: enoxaparin 40mg/0.4ml syringe SUBCUT ONE ×2 (16:55→17:10)
[2019-07-15 18:00] VITALS: BP 119/57
--- NOTE | 2019-07-15 18:20 | NUR ---
attempted to call report. will call back.
--- NOTE | 2019-07-15 19:00 | NUR ---
received report from Karen in ER
[2019-07-15 22:00] VITALS: BP 123/54
[2019-07-15] MEDS ORDERED: regadenoson 0.4mg/5ml syringe IV PRN (23:40)
[2019-07-15] MEDS ORDERED: aminophylline 250mg/10ml inj. IV PRN (23:40)
[2019-07-15] MEDS ORDERED: metoprolol tartrate 1mg/ml inj IV PRN (23:40)
[2019-07-16] VITALS (15 sets, daily range): BP systolic 100–184; BP diastolic 53–93
--- NOTE | 2019-07-16 03:00 | NUR ---
12 lead EKG reviewed by ER physician. no ST elevation. hospitalist notified
--- NOTE | 2019-07-16 03:09 | NUR ---
PAGER ID: [phone] MESSAGE: [phone] pt Cardenas. 12-lead done due to ECG changes representing possible ST depression. Please come review. Thank you. - Corrine [phone]
[2019-07-16 03:21] LABS: BASOPHILS % (AUTO) 0.3 % (0-1); EOSINOPHILS # (AUTO) 0.1 X10'3 (0-0.9); EOSINOPHILS % (AUTO) 1.2 % (0-6); HEMATOCRIT 34.8 % (35.0-45.0); HEMOGLOBIN 11.6 g/dl (12.0-16.0); LYMPHOCYTES # (AUTO) 1.8 X10'3 (1.1-4.8); MEAN CORPUSCULAR HEMOGLOBIN 31.3 PG (27.0-31.0); MEAN CORPUSCULAR HGB CONC 33.2 g/dL (33.0-36.5); MEAN CORPUSCULAR VOLUME 94.3 FL (78-98); MEAN PLATELET VOLUME 10.9 FL (7.4-10.4); MONOCYTES # (AUTO) 0.8 X10'3 (0-0.9); MONOCYTES % (AUTO) 8.2 % (2-12); NEUTROPHILS # (AUTO) 7.1 X10'3 (1.8-7.7); NEUTROPHILS % (AUTO) 72.3 % (42-75); PLATELET COUNT 159 X10'3 (140-440); RED CELL DISTRIBUTION WIDTH 14.8 % (11.5-14.5); WHITE BLOOD COUNT 9.8 X10'3 (4.5-11.0)
[2019-07-16] MEDS ORDERED: ALBU2.5V10 (03:28)
[2019-07-16 03:34] LABS: ALBUMIN 3.1 G/DL (3.4-5.0); ANION GAP 1 (8-16); BLOOD UREA NITROGEN 19 MG/DL (7-18); BUN/CREATININE RATIO 28.8 (6.6-38.0); CHLORIDE 101 MMOL/L (99-107); CREATININE 0.66 MG/DL (0.40-0.90); GLUCOSE 92 MG/DL (70-104); MAGNESIUM 1.7 MG/DL (1.5-2.4); POTASSIUM 3.3 MMOL/L (3.5-5.1); SODIUM 143 MMOL/L (135-145); eGFR 85 ML/MIN
[2019-07-16 03:37] LABS: TOTAL CARBON DIOXIDE 40.8 MMOL/L (24-32)
[2019-07-16] MEDS: potassium Cl 20 mEq SR tablet PO PRN ×3 (05:13→17:11)
--- NOTE | 2019-07-16 06:15 | NUR ---
Spoke out with Dr. Aranda, provider aware of elevated serum PC02 level, and EKG's
--- NOTE | 2019-07-16 06:28 | NUR ---
Orientee documentation: I have reviewed and agree with interventions, assessments performed and documented by Yari Murillo
--- NOTE | 2019-07-16 06:28 | NUR ---
Problems reprioritized. Patient report given, questions answered & plan of care reviewed with Millicent CONCEPCION.
--- NOTE | 2019-07-16 06:30 | NUR ---
Problems reprioritized. Patient report given, questions answered & plan of care reviewed with Mariama CONCEPCION.
--- NOTE | 2019-07-16 06:35 | NUR ---
Patient in room MED 310. I have received report from CARLENE Pollard and had the opportunity to ask questions and assume patient care.
--- NOTE | 2019-07-16 07:45 | NUR ---
[employer] INFORMED THAT PATIENT REFUSING KILLIAN UNTIL SHE SPEAKS WITH SON AND PCP FIRST. STATES "YOU ALL ARE TRYING TO KILL ME WITH THESE UNSAFE TESTS" SON - RONY - CALLED [phone], [facility] PCP - DR. KIDD - CALLED [phone], [facility] - OFFICE OPENS @ [phone]
--- NOTE | 2019-07-16 07:47 | NUR ---
PAGER ID: [phone] MESSAGE: [phone]: PAGE - refusing KILLIAN. wants to talk with son & PCP first. left msg with son, calling Dr. Patiño now. nurse Isabel ext [phone]
[2019-07-16] MEDS: levoTHYROXINE 25mcg tablet PO SCH (07:59)
[2019-07-16] MEDS: carVEDilol 3.125mg tablet PO SCH ×2 (07:59→19:49)
[2019-07-16] MEDS: clopidogrel 75mg tablet PO SCH (07:59)
[2019-07-16] MEDS: lisinopril 5mg tablet PO SCH (08:00)
[2019-07-16] MEDS: enoxaparin 40mg/0.4ml syringe SQ SCH ×2 (08:00→19:49)
[2019-07-16] MEDS: K and/or MAG REPLACEMENT MC SCH (08:00)
--- NOTE | 2019-07-16 08:11 | NUR ---
DR. KIDD'S OFFICE CALLED AGAIN, MSG LEFT FOR CALL BACK
--- NOTE | 2019-07-16 08:28 | NUR ---
DR. DURAN'S OFFICE CALLED, RECORDS REQUESTED - LAST KILLIAN STRESS TEST (2015) EXPLAINED TO PATIENT THAT SHE HAS HAD A KILLIAN STRESS TEST DONE BEFORE AND THE HOSPITALIST IS WANTING TO REPEAT THE TEST. PATIENT IS NOW AGREEABLE TO KILLIAN, NUC STEPHANIE RAMIREZ MD UPDATED
--- NOTE | 2019-07-16 10:00 | NUR ---
patient taken to [facility] for KILLIAN stress testing
--- NOTE | 2019-07-16 12:05 | NUR ---
patient returned to room 311 post KILLIAN stress test.
--- NOTE | 2019-07-16 12:37 | NUR ---
PAGER ID: [phone] MESSAGE: [phone]: CAMILO Oliver negative. can we feed patient? will she d/c today? nurse Millicent ext [phone]
--- NOTE | 2019-07-16 14:50 | NUR ---
paged PT for eval on pt.
[2019-07-16] MEDS: CefTRIAXone/D5W-Rocephin 1gm 50 ML IV SCH (17:11)
--- NOTE | 2019-07-16 18:15 | NUR ---
Received report from Millicent CONCEPCION
--- NOTE | 2019-07-16 18:26 | NUR ---
Problems reprioritized. Patient report given, questions answered & plan of care reviewed with CARLENE Greenberg.
--- NOTE | 2019-07-16 18:58 | NUR ---
Paged Dr. Thao. 310, Clara Cardenas. BP's have been elevated since 0800, 170s-180's systolic Blood pressure at change of shift is 177/73. at 20:00 she gets 20 Lasix IV and Coreg 3.125. Please call back at [phone]. Thank you.
--- NOTE | 2019-07-16 19:21 | NUR ---
spoke with Dr. Nelson regarding BP. received order of hydralazine 10 mg IV q 4 hr PRN if systolic consistently above 150. pt also receiving lasix and carvedilol routinely. will continue to monitor.
[2019-07-16] MEDS: furosemide 20 MG/2 ML vial IV SCH (19:49)
[2019-07-16] MEDS: atorvastatin 20mg tablet PO SCH (20:50)
[2019-07-17] MEDS ORDERED: hydrALAZINE 20mg/ml inj. IV PRN (00:15)
[2019-07-17 02:00] VITALS: BP 143/63
[2019-07-17 03:17] LABS: ALBUMIN 3.1 G/DL (3.4-5.0); ANION GAP 4 (8-16); BLOOD UREA NITROGEN 16 MG/DL (7-18); BUN/CREATININE RATIO 29.1 (6.6-38.0); CHLORIDE 100 MMOL/L (99-107); CREATININE 0.55 MG/DL (0.40-0.90); GLUCOSE 92 MG/DL (70-104); MAGNESIUM 1.6 MG/DL (1.5-2.4); POTASSIUM 3.9 MMOL/L (3.5-5.1); SODIUM 142 MMOL/L (135-145); TOTAL CARBON DIOXIDE 38.1 MMOL/L (24-32); eGFR > 90 ML/MIN
[2019-07-17 05:05] LABS: BASOPHILS % (AUTO) 0.6 % (0-1); EOSINOPHILS # (AUTO) 0.3 X10'3 (0-0.9); HEMATOCRIT 36.9 % (35.0-45.0); HEMOGLOBIN 12.1 g/dl (12.0-16.0); LYMPHOCYTES # (AUTO) 2.2 X10'3 (1.1-4.8); LYMPHOCYTES % (AUTO) 27.5 % (21-51); MEAN CORPUSCULAR HEMOGLOBIN 30.8 PG (27.0-31.0); MEAN CORPUSCULAR HGB CONC 32.9 g/dL (33.0-36.5); MEAN CORPUSCULAR VOLUME 93.7 FL (78-98); MEAN PLATELET VOLUME 10.5 FL (7.4-10.4); MONOCYTES # (AUTO) 0.6 X10'3 (0-0.9); MONOCYTES % (AUTO) 7.7 % (2-12); NEUTROPHILS # (AUTO) 4.7 X10'3 (1.8-7.7); NEUTROPHILS % (AUTO) 60.2 % (42-75); PLATELET COUNT 155 X10'3 (140-440); RED BLOOD COUNT 3.94 X10'6 (4.20-5.60); RED CELL DISTRIBUTION WIDTH 14.9 % (11.5-14.5); WHITE BLOOD COUNT 7.9 X10'3 (4.5-11.0)
--- NOTE | 2019-07-17 05:32 | NUR ---
spoke with Dr. Nelson about pt red tinged small BM. Dr. Nelson discontinue lovenox and will put in an order for protonix.
[2019-07-17 06:00] VITALS: BP 138/67
--- NOTE | 2019-07-17 06:00 | NUR ---
Patient in room MED 310. I have received report from Atul CONCEPCION and had the opportunity to ask questions and assume patient care.
--- NOTE | 2019-07-17 06:28 | NUR ---
Problems reprioritized. Patient report given, questions answered & plan of care reviewed with Era CONCEPCION.
--- NOTE | 2019-07-17 06:29 | NUR ---
Problems reprioritized. Patient report given, questions answered & plan of care reviewed with Madeline CONCEPCION.
--- NOTE | 2019-07-17 06:30 | NUR ---
Orientee Medication Administration: For this medication-pass time frame, medications were reviewed, dispensed, administered and documented per hospital policy by Yari Murillo.
--- NOTE | 2019-07-17 06:30 | NUR ---
Orientee documentation: I have reviewed and agree with interventions, assessments performed and documented by Yari Murillo .
[2019-07-17 06:58] LABS: LARGE PLATELETS FEW; PLATELET ESTIMATE NORMAL
[2019-07-17] MEDS: K and/or MAG REPLACEMENT MC SCH (08:00)
[2019-07-17] MEDS: CefTRIAXone/D5W-Rocephin 1gm 50 ML IV SCH (09:34)
[2019-07-17] MEDS: lisinopril 5mg tablet PO SCH (09:35)
[2019-07-17] MEDS: clopidogrel 75mg tablet PO SCH (09:35)
[2019-07-17] MEDS: levoTHYROXINE 25mcg tablet PO SCH (09:35)
[2019-07-17] MEDS: furosemide 20 MG/2 ML vial IV SCH ×2 (09:35→20:00)
[2019-07-17] MEDS: carVEDilol 3.125mg tablet PO SCH ×2 (09:35→20:00)
[2019-07-17] MEDS: potassium Cl 20 mEq SR tablet PO PRN (10:03)
[2019-07-17 11:00] VITALS: BP 91/47
[2019-07-17 15:00] VITALS: BP 107/53
--- NOTE | 2019-07-17 17:05 | NUR ---
Patient in room MED 310. I have received report from Era CONCEPCION and had the opportunity to ask questions and assume patient care.
--- NOTE | 2019-07-17 17:15 | NUR ---
Problems reprioritized. Patient report given, questions answered & plan of care reviewed with Atul RN for transfer to PCU.
--- NOTE | 2019-07-17 17:20 | NUR ---
Patient taken in wheelchair to PCU. All her belongings accounted for. She has remained stable today. VSS. Denies any needs prior to leaving. She was transferred to PCU report called to nurse receiving.
--- NOTE | 2019-07-17 17:29 | NUR ---
Pt arrived to floor from the ACCE unit. Oriented pt to room and call light. Vital WNL, Pt in Sinus Rythm, A and Ox4.
--- NOTE | 2019-07-17 18:20 | NUR ---
Problems reprioritized. Patient report given, questions answered & plan of care reviewed with Mariana CONCEPCION.
[2019-07-17 19:00] VITALS: BP 99/52
[2019-07-17] MEDS: atorvastatin 20mg tablet PO SCH (20:36)
[2019-07-17] MEDS: lactobacillus rhamnosus 10,000 MMU CELLS/CAPSULE PO SCH (20:36)
[2019-07-17 23:00] VITALS: BP 119/45
[2019-07-18 04:56] LABS: BASOPHILS % (AUTO) 0.6 % (0-1); EOSINOPHILS # (AUTO) 0.3 X10'3 (0-0.9); EOSINOPHILS % (AUTO) 4.4 % (0-6); HEMATOCRIT 38.2 % (35.0-45.0); HEMOGLOBIN 12.6 g/dl (12.0-16.0); LYMPHOCYTES # (AUTO) 2.1 X10'3 (1.1-4.8); LYMPHOCYTES % (AUTO) 31.4 % (21-51); MEAN CORPUSCULAR HEMOGLOBIN 30.6 PG (27.0-31.0); MEAN PLATELET VOLUME 10.3 FL (7.4-10.4); MONOCYTES # (AUTO) 0.5 X10'3 (0-0.9); MONOCYTES % (AUTO) 7.9 % (2-12); NEUTROPHILS # (AUTO) 3.7 X10'3 (1.8-7.7); NEUTROPHILS % (AUTO) 55.7 % (42-75); PLATELET COUNT 167 X10'3 (140-440); RED CELL DISTRIBUTION WIDTH 15.2 % (11.5-14.5); WHITE BLOOD COUNT 6.6 X10'3 (4.5-11.0)
[2019-07-18 05:00] LABS: ANION GAP 3 (8-16); BLOOD UREA NITROGEN 20 MG/DL (7-18); CALCIUM 9.2 MG/DL (8.5-10.1); CHLORIDE 101 MMOL/L (99-107); CREATININE 0.74 MG/DL (0.40-0.90); GLUCOSE 87 MG/DL (70-104); MAGNESIUM 1.7 MG/DL (1.5-2.4); POTASSIUM 3.9 MMOL/L (3.5-5.1); SODIUM 140 MMOL/L (135-145); TOTAL CARBON DIOXIDE 36.5 MMOL/L (24-32); eGFR 74 ML/MIN
--- NOTE | 2019-07-18 06:15 | NUR ---
Patient in room PCU 3023. I have received report from CARLENE Peña and had the opportunity to ask questions and assume patient care. Patient sleeping at this time, no distress noted. Will continue to monitor .
[2019-07-18 07:06] VITALS: BP 98/39
[2019-07-18] MEDS: K and/or MAG REPLACEMENT MC SCH (08:00)
[2019-07-18] MEDS: furosemide 20 MG/2 ML vial IV SCH (08:00)
[2019-07-18] MEDS: lisinopril 5mg tablet PO SCH (08:00)
[2019-07-18] MEDS: carVEDilol 3.125mg tablet PO SCH (08:00)
[2019-07-18] MEDS: lactobacillus rhamnosus 10,000 MMU CELLS/CAPSULE PO SCH (08:01)
[2019-07-18] MEDS: CefTRIAXone/D5W-Rocephin 1gm 50 ML IV SCH (08:01)
[2019-07-18] MEDS: levoTHYROXINE 25mcg tablet PO SCH (08:01)
[2019-07-18] MEDS: clopidogrel 75mg tablet PO SCH (08:01)
[2019-07-18] MEDS ORDERED: CEFD300C3 PO (09:52)
[2019-07-18] MEDS ORDERED: FURO-150 PO (09:52)
--- NOTE | 2019-07-18 11:40 | NUR ---
Patient stable for discharge per MD. Discharge instructions given to patient, all questions and concerns addressed. New medications faxed to [facility]. PIV d/c'd catheter intact. Tele monitor removed and returned to teletype technician. Patient transported off unit by staff to private vehicle.
== END 2019-07-18 11:40 | disposition home health service (06) | DRG 280 ==
LOC: ER 13:22 → ED HOLD 16:40 → MED 3N 19:15 → PCU 3S 07-17 17:45
PROVIDERS: ADMIT Hospitalist; ATTEND Hospitalist
PROC: 4A02XM4 Measurement of Cardiac Total Activity, External Approach (ICD-10-PCS; principal; 2019-07-16)
PROC: 3E073KZ Introduction of Other Diagnostic Substance into Coronary Artery, Percutaneous Approach (ICD-10-PCS; 2019-07-16)
DX: I21.4 Non-ST elevation (NSTEMI) myocardial infarction (principal); I50.33 Acute on chronic diastolic (congestive) heart failure; E66.2 Morbid (severe) obesity with alveolar hypoventilation; B15.9 Hepatitis A without hepatic coma; J44.0 Chronic obstructive pulmonary disease with (acute) lower respiratory infection; J44.1 Chronic obstructive pulmonary disease with (acute) exacerbation; J96.11 Chronic respiratory failure with hypoxia; I24.8 Other forms of acute ischemic heart disease; I25.10 Atherosclerotic heart disease of native coronary artery without angina pectoris; I11.0 Hypertensive heart disease with heart failure; K21.9 Gastro-esophageal reflux disease without esophagitis; E03.9 Hypothyroidism, unspecified; E78.5 Hyperlipidemia, unspecified; G89.29 Other chronic pain; I34.0 Nonrheumatic mitral (valve) insufficiency; J20.9 Acute bronchitis, unspecified; E87.6 Hypokalemia; Z88.6 Allergy status to analgesic agent; Z88.8 Allergy status to other drugs, medicaments and biological substances; Z95.1 Presence of aortocoronary bypass graft; Z99.81 Dependence on supplemental oxygen
CPT/HCPCS: 36415; 71045; 78452; 80048; 80053; 83735; 83880; 84484; 85025; 87070; 87081; 93005; 93017; 94640; 94760; 96374; 97116; 97161; 97530; 99291; A9500; G0378; J0280; J0696; J1650; J1940; J2785

== ENCOUNTER 2019-11-04 18:40 | Emergency (ER) | payer MEDICARE, BC ==
[~2019-11-04] VITALS: Ht 142.2 cm; Wt 34.1 kg
[~2019-11-04 18:40] MED LIST changes: +ALBU2.5V10; -ALBU2.5V10 NEB; -AZI25OT PO; -CEFD300C3 PO; -FAMO20TA8 PO; -FURO40TA4 PO; -LACT1CAP26 PO; -MIRA25TA PO; -POTA10TA19 PO
[2019-11-04 19:13] LABS: BASOPHILS % (AUTO) 0.5 % (0-1); EOSINOPHILS # (AUTO) 0.3 X10'3 (0-0.9); EOSINOPHILS % (AUTO) 3.9 % (0-6); HEMATOCRIT 38.9 % (35.0-45.0); HEMOGLOBIN 12.8 g/dl (12.0-16.0); LYMPHOCYTES % (AUTO) 28.2 % (21-51); MEAN CORPUSCULAR HEMOGLOBIN 31.7 PG (27.0-31.0); MEAN CORPUSCULAR VOLUME 95.9 FL (78-98); MEAN PLATELET VOLUME 10.4 FL (7.4-10.4); MONOCYTES # (AUTO) 0.5 X10'3 (0-0.9); MONOCYTES % (AUTO) 7.2 % (2-12); NEUTROPHILS # (AUTO) 4.3 X10'3 (1.8-7.7); NEUTROPHILS % (AUTO) 60.2 % (42-75); PLATELET COUNT 140 X10'3 (140-440); RED BLOOD COUNT 4.05 X10'6 (4.20-5.60); RED CELL DISTRIBUTION WIDTH 13.3 % (11.5-14.5); WHITE BLOOD COUNT 7.1 X10'3 (4.5-11.0)
[2019-11-04 19:21] LABS: PARTIAL THROMBOPLASTIN TIME 25 SECONDS (22-32)
[2019-11-04 19:25] LABS: ALANINE AMINOTRANSFERASE 34 U/L (12-78); ALBUMIN 3.5 G/DL (3.4-5.0); ALKALINE PHOSPHATASE 80 IU/L (46-116); ANION GAP 2 (8-16); ASPARTATE AMINO TRANSFERASE 26 U/L (10-37); BILIRUBIN,TOTAL 0.5 MG/DL (0.1-1.0); BLOOD UREA NITROGEN 15 MG/DL (7-18); BUN/CREATININE RATIO 26.3 (6.6-38.0); CALCIUM 9.9 MG/DL (8.5-10.1); CHLORIDE 103 MMOL/L (99-107); CREATININE 0.57 MG/DL (0.40-0.90); GLUCOSE 96 MG/DL (70-104); SODIUM 143 MMOL/L (135-145); TOTAL CARBON DIOXIDE 38.2 MMOL/L (24-32); eGFR > 90 ML/MIN
[2019-11-04] MEDS ORDERED: dexamethasone sod phosphate 10mg/ml inj IV STA (20:02)
[2019-11-04] MEDS ORDERED: ipratropium/albuterol 3ml nebule NEB ONE (20:05)
--- NOTE | 2019-11-04 20:10 | NUR ---
ROBIN CORREA AWARE OF PT BLOOD PRESSURE 101/77. NO NEW ORDERS AT THIS TIME. WILL CONTINUE TO MONITOR. PT HAS NO COMPLAINTS OF PAIN RO DISCOMFORT AT THIS TIME.
--- NOTE | 2019-11-04 20:33 | NUR ---
RT AT BEDSIDE
[2019-11-04] MEDS ORDERED: DOXY100C43 PO (21:33)
[2019-11-04] MEDS ORDERED: PRED20TA PO (21:33)
[2019-11-04] MEDS ORDERED: ALBU8HFA PO (21:33)
[2019-11-04 22:12] VITALS: BP 162/79
== END 2019-11-04 22:12 | disposition home or self-care (01) ==
LOC: ER 18:40
DX: J44.1 Chronic obstructive pulmonary disease with (acute) exacerbation (principal); R06.02 Shortness of breath; R05 Cough; R06.09 Other forms of dyspnea; I25.10 Atherosclerotic heart disease of native coronary artery without angina pectoris; I10 Essential (primary) hypertension; K21.9 Gastro-esophageal reflux disease without esophagitis; Z86.19 Personal history of other infectious and parasitic diseases; G89.29 Other chronic pain; Z90.49 Acquired absence of other specified parts of digestive tract; Z95.1 Presence of aortocoronary bypass graft; Z88.5 Allergy status to narcotic agent; Z88.8 Allergy status to other drugs, medicaments and biological substances; Z79.2 Long term (current) use of antibiotics; Z79.899 Other long term (current) drug therapy
CPT/HCPCS: 36415; 71045; 80053; 83880; 84484; 85025; 85610; 85730; 87502; 87503; 93005; 94640; 96374; 99285; J1100; 94760

== ENCOUNTER 2020-02-22 22:19 | Emergency (ER) | payer MEDICARE, BC ==
[~2020-02-22] VITALS: Ht 271.8 cm; Wt 38.6 kg
[~2020-02-22 22:19] MED LIST changes: -ATOR40TA71 PO; +FURO40TA4 PO; -LISI-604 PO; +LISI2.5T2 PO; +POTA-82 PO; +SPIR25TA PO
[2020-02-22] MEDS ORDERED: normal saline 1000ml 1,000 ML IV ONE (22:35)
[2020-02-22 23:02] LABS: CLARITY,URINE CLEAR (Clear); COLOR,URINE YELLOW (Yellow); GLUCOSE, URINE NEGATIVE (Neg); KETONES,URINE 15 mg/dl (Neg); LEUKOCYTE ESTERASE ,URINE TRACE (Neg); NITRITES, URINE NEGATIVE (Neg); OCCULT BLOOD,URINE TRACE-INTACT (Neg); PROTEIN,URINE NEGATIVE (Neg); UROBILINOGEN,URINE 0.2 E.U/dL (0.2-1.0)
[2020-02-22 23:06] LABS: UA COLLECTION TYPE STRAIGHT CATH
[2020-02-22 23:07] LABS: BACTERIA,URINE 2+ /HPF (Neg); RBC,URINE 0-2 /HPF (0-2); SQUAMOUS EPITHELIAL CELL,UR FEW /LPF (FEW); WBC,URINE 0-4 /HPF (0-4)
[2020-02-22] MEDS ORDERED: ondansetron/PF 4mg/2ml inj IV ONE (23:40)
[2020-02-22] MEDS ORDERED: ketorolac trometh. 30mg/ml inj. IV ONE (23:40)
[2020-02-23 00:14] LABS: HEMOGLOBIN 13.3 g/dl (12.0-16.0); WHITE BLOOD COUNT 15.5 X10'3 (4.5-11.0)
[2020-02-23 00:16] LABS: BASOPHILS # (AUTO) 0.1 X10'3 (0-0.2); BASOPHILS % (AUTO) 0.5 % (0-1); EOSINOPHILS % (AUTO) 0.3 % (0-6); HEMATOCRIT 41.3 % (35.0-45.0); LYMPHOCYTES # (AUTO) 2.1 X10'3 (1.1-4.8); LYMPHOCYTES % (AUTO) 13.7 % (21-51); MEAN CORPUSCULAR HEMOGLOBIN 31.8 PG (27.0-31.0); MEAN CORPUSCULAR HGB CONC 32.2 g/dL (33.0-36.5); MONOCYTES # (AUTO) 0.6 X10'3 (0-0.9); MONOCYTES % (AUTO) 3.7 % (2-12); NEUTROPHILS # (AUTO) 12.7 X10'3 (1.8-7.7); NEUTROPHILS % (AUTO) 81.8 % (42-75); PLATELET COUNT 187 X10'3 (140-440); RED BLOOD COUNT 4.17 X10'6 (4.20-5.60); RED CELL DISTRIBUTION WIDTH 13.7 % (11.5-14.5)
[2020-02-23 01:18] LABS: ALANINE AMINOTRANSFERASE 39 U/L (12-78); ALBUMIN 3.6 G/DL (3.4-5.0); ALBUMIN/GLOBULIN RATIO 1.1 (1.1-1.5); ALKALINE PHOSPHATASE 78 IU/L (46-116); ANION GAP 1 (8-16); ASPARTATE AMINO TRANSFERASE 40 U/L (10-37); BILIRUBIN,TOTAL 0.6 MG/DL (0.1-1.0); BLOOD UREA NITROGEN 14 MG/DL (7-18); BUN/CREATININE RATIO 14.4 (6.6-38.0); CALCIUM 8.8 MG/DL (8.5-10.1); CHLORIDE 104 MMOL/L (99-107); CREATININE 0.97 MG/DL (0.40-0.90); GLUCOSE 112 MG/DL (70-104); POTASSIUM 4.8 MMOL/L (3.5-5.1); SODIUM 140 MMOL/L (135-145); TOTAL CARBON DIOXIDE 34.6 MMOL/L (24-32); TOTAL PROTEIN 6.8 G/DL (6.4-8.2); eGFR 54 ML/MIN
[2020-02-23 01:21] LABS: LIPASE 101 U/L (73-393); TROPONIN I < 0.04 NG/ML (0.0-0.05)
[2020-02-23] MEDS ORDERED: ONDA8TAB6 PO (01:33)
[2020-02-23 03:08] VITALS: BP 169/93
== END 2020-02-23 03:11 | disposition home or self-care (01) ==
LOC: ER 22:19
DX: N20.0 Calculus of kidney (principal); R11.2 Nausea with vomiting, unspecified; R10.32 Left lower quadrant pain; M54.5 Low back pain; I25.10 Atherosclerotic heart disease of native coronary artery without angina pectoris; I10 Essential (primary) hypertension; J44.9 Chronic obstructive pulmonary disease, unspecified; K21.9 Gastro-esophageal reflux disease without esophagitis; B15.9 Hepatitis A without hepatic coma; G89.29 Other chronic pain; Z90.49 Acquired absence of other specified parts of digestive tract; Z98.890 Other specified postprocedural states; Z88.5 Allergy status to narcotic agent; Z88.8 Allergy status to other drugs, medicaments and biological substances; Z79.899 Other long term (current) drug therapy
CPT/HCPCS: 36415; 71045; 74176; 80053; 81001; 83605; 83690; 84484; 85025; 87088; 93005; 96361; 96374; 96375; 99285; J1885; J2405; J7030

== ENCOUNTER 2020-09-05 15:39 | Emergency (ER) | payer MEDICARE, BC ==
[~2020-09-05] VITALS: Ht 157.5 cm; Wt 35.0 kg
[~2020-09-05 15:39] MED LIST changes: +CLOP75TA34 PO; -CLOP75TA35 PO; +ONDA8TAB6 PO
[2020-09-05] MEDS ORDERED: ipratropium/albuterol 3ml nebule NEB ONE (15:45)
[2020-09-05] MEDS ORDERED: methylPREDNISolone sod succ 125mg/2ml vial IV ONE (15:45)
[2020-09-05 16:21] LABS: BASOPHILS % (AUTO) 0.4 % (0-1); EOSINOPHILS # (AUTO) 0.2 X10'3 (0-0.9); EOSINOPHILS % (AUTO) 2.5 % (0-6); HEMATOCRIT 36.3 % (35.0-45.0); HEMOGLOBIN 11.9 g/dl (12.0-16.0); LYMPHOCYTES # (AUTO) 0.8 X10'3 (1.1-4.8); LYMPHOCYTES % (AUTO) 8.3 % (21-51); MEAN CORPUSCULAR HEMOGLOBIN 31.1 PG (27.0-31.0); MEAN CORPUSCULAR HGB CONC 32.7 g/dL (33.0-36.5); MEAN CORPUSCULAR VOLUME 95.2 FL (78-98); MEAN PLATELET VOLUME 9.2 FL (7.4-10.4); MONOCYTES # (AUTO) 0.4 X10'3 (0-0.9); MONOCYTES % (AUTO) 4.8 % (2-12); NEUTROPHILS # (AUTO) 7.7 X10'3 (1.8-7.7); PLATELET COUNT 290 X10'3 (140-440); RED BLOOD COUNT 3.82 X10'6 (4.20-5.60); WHITE BLOOD COUNT 9.2 X10'3 (4.5-11.0)
[2020-09-05 16:43] LABS: ALANINE AMINOTRANSFERASE 35 U/L (12-78); ALBUMIN 2.8 G/DL (3.4-5.0); ALBUMIN/GLOBULIN RATIO 0.7 (1.1-1.5); ALKALINE PHOSPHATASE 76 IU/L (46-116); ANION GAP 8 (8-16); ASPARTATE AMINO TRANSFERASE 41 U/L (10-37); BILIRUBIN,TOTAL 0.3 MG/DL (0.1-1.0); BLOOD UREA NITROGEN 11 MG/DL (7-18); BUN/CREATININE RATIO 17.2 (6.6-38.0); CALCIUM 9.1 MG/DL (8.5-10.1); CHLORIDE 97 MMOL/L (99-107); CREATININE 0.64 MG/DL (0.40-0.90); GLUCOSE 117 MG/DL (70-104); POTASSIUM 3.9 MMOL/L (3.5-5.1); SODIUM 139 MMOL/L (135-145); TOTAL CARBON DIOXIDE 34.4 MMOL/L (24-32); TOTAL PROTEIN 7.1 G/DL (6.4-8.2); eGFR 88 ML/MIN
[2020-09-05] MEDS ORDERED: PRED20TA PO (16:48)
[2020-09-05 17:55] VITALS: BP 113/57
== END 2020-09-05 17:40 | disposition home or self-care (01) ==
LOC: ER 15:40
DX: J44.1 Chronic obstructive pulmonary disease with (acute) exacerbation (principal); I25.10 Atherosclerotic heart disease of native coronary artery without angina pectoris; I10 Essential (primary) hypertension; K21.9 Gastro-esophageal reflux disease without esophagitis; G89.29 Other chronic pain; Z86.19 Personal history of other infectious and parasitic diseases; Z90.49 Acquired absence of other specified parts of digestive tract; Z95.1 Presence of aortocoronary bypass graft; Z88.5 Allergy status to narcotic agent; Z88.8 Allergy status to other drugs, medicaments and biological substances; Z79.899 Other long term (current) drug therapy
CPT/HCPCS: 36415; 71045; 80053; 85025; 93005; 94640; 96374; 99285; J2930; 94760

== ENCOUNTER 2020-10-14 08:33 | Emergency (ER) | payer MEDICARE, BC ==
[~2020-10-14] VITALS: Ht 152.4 cm; Wt 35.5 kg
--- NOTE | 2020-10-14 08:48 | NUR ---
Kate jensen in [facility] - 10/14/20 at 0848 by BENNETT [phone] YANDY
[2020-10-14 10:48] LABS: BASOPHILS # (AUTO) 0.2 X10'3 (0-0.2); BASOPHILS % (AUTO) 1.5 % (0-1); EOSINOPHILS # (AUTO) 0.3 X10'3 (0-0.9); HEMATOCRIT 33.7 % (35.0-45.0); HEMOGLOBIN 10.9 g/dl (12.0-16.0); LYMPHOCYTES # (AUTO) 1.5 X10'3 (1.1-4.8); LYMPHOCYTES % (AUTO) 11.8 % (21-51); MEAN CORPUSCULAR HEMOGLOBIN 30.6 PG (27.0-31.0); MEAN CORPUSCULAR HGB CONC 32.3 g/dL (33.0-36.5); MEAN CORPUSCULAR VOLUME 94.9 FL (78-98); MEAN PLATELET VOLUME 9.9 FL (7.4-10.4); MONOCYTES # (AUTO) 0.5 X10'3 (0-0.9); NEUTROPHILS # (AUTO) 10.3 X10'3 (1.8-7.7); NEUTROPHILS % (AUTO) 80.7 % (42-75); PLATELET COUNT 235 X10'3 (140-440); RED BLOOD COUNT 3.55 X10'6 (4.20-5.60); RED CELL DISTRIBUTION WIDTH 14.6 % (11.5-14.5); WHITE BLOOD COUNT 12.7 X10'3 (4.5-11.0)
[2020-10-14 10:53] LABS: ALANINE AMINOTRANSFERASE 32 U/L (12-78); ALBUMIN 2.9 G/DL (3.4-5.0); ALBUMIN/GLOBULIN RATIO 0.8 (1.1-1.5); ALKALINE PHOSPHATASE 95 IU/L (46-116); ANION GAP 1 (8-16); ASPARTATE AMINO TRANSFERASE 25 U/L (10-37); BILIRUBIN,TOTAL 0.3 MG/DL (0.1-1.0); BLOOD UREA NITROGEN 21 MG/DL (7-18); BUN/CREATININE RATIO 33.9 (6.6-38.0); CALCIUM 10.1 MG/DL (8.5-10.1); CHLORIDE 102 MMOL/L (99-107); CREATININE 0.62 MG/DL (0.40-0.90); GLUCOSE 105 MG/DL (70-104); SODIUM 145 MMOL/L (135-145); TOTAL PROTEIN 6.7 G/DL (6.4-8.2); eGFR > 90 ML/MIN
[2020-10-14 10:55] LABS: TOTAL CARBON DIOXIDE 41.7 MMOL/L (24-32)
[2020-10-14 12:13] VITALS: BP 173/70
[2020-10-17] MEDS ORDERED: ALBU18HF2 (11:18)
[2020-10-17] MEDS ORDERED: LISI2.5T89 PO (11:18)
[2020-10-17] MEDS ORDERED: ATOR40TA72 PO (11:18)
[2020-10-17] MEDS ORDERED: PRED20TA PO (11:18)
[2020-10-17] MEDS ORDERED: POTA10TA36 PO (12:33)
== END 2020-10-14 12:14 | disposition home or self-care (01) ==
LOC: ER 08:33
DX: R06.02 Shortness of breath (principal); R10.9 Unspecified abdominal pain; R41.0 Disorientation, unspecified; I25.10 Atherosclerotic heart disease of native coronary artery without angina pectoris; I10 Essential (primary) hypertension; J44.9 Chronic obstructive pulmonary disease, unspecified; K21.9 Gastro-esophageal reflux disease without esophagitis; G89.29 Other chronic pain; Z86.19 Personal history of other infectious and parasitic diseases; Z90.49 Acquired absence of other specified parts of digestive tract; Z95.5 Presence of coronary angioplasty implant and graft; Z87.891 Personal history of nicotine dependence; Z88.6 Allergy status to analgesic agent; Z88.8 Allergy status to other drugs, medicaments and biological substances; Z79.899 Other long term (current) drug therapy
CPT/HCPCS: 36415; 71045; 80053; 84145; 85025; 93005; 99285